=== PATIENT | male | born 1995 | race African-American/Black ===

== ENCOUNTER → 2019-09-22 | Outpatient (CLI) | payer OTHER ==
[~2019-09-22] MED LIST: HYDR-2761 PO; LEVE500T21 PO
--- NOTE | 2019-09-22 16:04 | EEG ---
DATE OF SERVICE: 09/22/2019 EEG NUMBER: [id number]. OBJECTIVE: The patient is a 24-year-old male with history of seizures. DESCRIPTION: This is a digital study. Electrodes are placed according to the international 10-20 system. Bipolar and referential montages are available. Activation procedures typically include hyperventilation and intermittent photic stimulation. INTERPRETATION: The waking background consists of 9-10 Hz, 50-100 microvolt activity, symmetrically distributed over parieto-occipital regions and reactive to eye opening. Stage 1 sleep is achieved with normal electroencephalogram patterns. Hyperventilation and intermittent photic stimulation are noncontributory. IMPRESSION: This electroencephalogram with the patient's awake and asleep is within normal limits. There is no focal, paroxysmal, or epileptiform activity. Thank you for letting us help with the patient's care. ALFONSO WHITNEY MD DR: CRISTOBAL/anahi JOB#: [id number] / [id number]
== END | disposition home or self-care (01) ==
LOC: RT 08:58
PROVIDERS: ATTEND Psychiatry & Neurology Neurology with Special Qualifications in Child Neurology
DX: G40.309 Generalized idiopathic epilepsy and epileptic syndromes, not intractable, without status epilepticus (principal)
CPT/HCPCS: 95816

== ENCOUNTER → 2019-09-29 | Outpatient (CLI) | payer OTHER ==
[~2019-09-29] MED LIST changes: +GADOTERATE 7.5 MMOL/15ML VIAL. IVP ONE
--- NOTE | 2019-09-29 11:11 | KCIC ---
MRI of the Brain without and with Contrast 09/29/2019 Clinical History: Seizures since childhood which have started again since May of last year. Technique: Unenhanced T1-weighted sagittal and axial and FLAIR, T2-weighted, gradient echo and diffusion-weighted axial images of the brain were obtained. Additionally thin section T2-weighted and FLAIR coronal images of the temporal lobes were obtained. After the intravenous administration of 12 cc of DOTAREM, enhanced T1-weighted axial and coronal images of the brain were obtained. Findings: The ventricles and sulci are within normal limits in size and configuration. No area of significant abnormal signal intensity is seen involving the brain parenchyma. No abnormal area of contrast enhancement is seen. No extra-axial fluid collection is noted. There is no MRI evidence of acute ischemia/infarction. Images through the temporal lobes are within normal limits. The left maxillary sinus is completely opacified by mucosal thickening and secretions. Mild to moderate mucosal thickening is seen scattered throughout the remaining paranasal sinuses. Normal flow voids are seen within the major vascular structures surrounding the brain parenchyma. Impression: 1. Negative MRI of the brain. 2. Paranasal sinus disease. Electronically signed by: Joe Bravo MD (09/29/2019 11:09 AM) [place] [id number]
== END | disposition home or self-care (01) ==
LOC: KCIC MRI 09:09
PROVIDERS: ATTEND Psychiatry & Neurology Neurology with Special Qualifications in Child Neurology
DX: G40.909 Epilepsy, unspecified, not intractable, without status epilepticus (principal); J34.89 Other specified disorders of nose and nasal sinuses
CPT/HCPCS: 70553; A9575